=== PATIENT | female | born 1940 | race Caucasian/White ===

== ENCOUNTER 2019-04-06 11:20 | Outpatient (CLI) | payer MEDICARE, BC ==
--- NOTE | 2019-04-06 12:40 | RAD ---
RIGHT RIB SERIES: Comparison: None. History: Right rib pain. FINDINGS: Four views of the right ribs shows diffuse osteopenia. No displaced rib fracture is appreciated. No u nderlying pleural thickening or pneumothorax are seen. Increased interstitial markings are seen in th e lungs. IMPRESSION: No evidence of displaced right rib fracture. POS: [facility]
--- NOTE | 2019-04-06 12:43 | RAD ---
THREE VIEWS RIGHT FOOT: Comparison: None. History: Foot and rib pain. FINDINGS: Three views of the right foot shows no evidence of acute fracture or dislocation. There is joint spac e narrowing and osteophyte formation in the great toe/metatarsal phalangeal joint. IMPRESSION: Degenerative changes in the great toe without acute osseous abnormality. POS: [facility]
== END 2019-04-06 11:21 | disposition home or self-care (01) ==
LOC: NAV RAD 11:20
PROVIDERS: ATTEND Nurse Practitioner Adult Health
DX: M79.671 Pain in right foot (principal); R07.81 Pleurodynia; M19.071 Primary osteoarthritis, right ankle and foot